=== PATIENT | male | born 1945 | race Two or more races ===

== ENCOUNTER 2017-05-19 22:12 | Emergency (ER) | payer MEDICARE ==
[~2017-05-19] VITALS: Ht 160 cm; Wt 66.0 kg
[2017-05-19 22:21] VITALS: BP 180/90
== END 2017-05-19 23:30 | disposition left against medical advice (07) ==
LOC: ER 22:12
DX: R10.9 Unspecified abdominal pain (principal); Z53.21 Procedure and treatment not carried out due to patient leaving prior to being seen by health care provider